=== PATIENT | female | born 1985 | race Caucasian/White ===

== ENCOUNTER 2023-06-29 08:40 | Emergency (ER) | payer OTHER, SELFPAY ==
[2023-06-29 08:54] VITALS: BP 112/77
--- NOTE | 2023-06-29 09:19 | ED.GENMED ---
Addendum entered and electronically signed by Aydin Zamorano DO 06/29/23 11:56:
Update feeling better abdomen soft nontender unable to give a stool specimen we will hold on antibiotics
Original Note:
History of Present Illness
General
Chief Complaint: Abdominal Symptoms
Source: patient
Exam Limitations: none
Time Seen by Provider: 06/29/23 09:06
Nursing documentation reviewed up to this point in time: agreed with
Travel History
Have you had any contact with someone who has COVID-19?: No
Do you have any symptoms of coronavirus? Fever > 100 degrees, chills, cough, shortness of breath, sore throat, loss of taste or smell, muscle aches, or headache?: No
History of Present Illness
History of Present Illness:
38 female 5 days nausea vomiting diarrhea fever chills abdominal cramping discussed with menstrual cycle, whole family's been sick with similar less severe symptoms, no foreign travel no raw or undercooked foods or recent antibiotic use she had an
appendectomy she has Brugada syndrome she is concerned that she may be dehydrated she has noticed blood in her stool the past few days
Past History
Past History
ED Past Medical History: Arrthythmia (Brugada syndrome) and Psychiatric
ED Past Surgical History: Appendectomy
Social History
Tobacco: Non-smoker
Alcohol: None
Drug: None
Personal: Single
Living: with family
Employment: Employed
Review of Systems
Review of Systems
All Other Systems: Not applicable
Constitutional: Reports fever, fatigue and chills
EENT: Reports no symptoms
Respiratory: Denies cough or trouble breathing
Cardiac: Reports chest pain
ABD/GI: Reports abdominal pain, nausea, vomiting and diarrhea
: Reports no symptoms
Musculoskeletal: Reports no symptoms
Skin: Reports no symptoms
Neurological: Reports weakness
Endocrine: Reports no symptoms
Hematologic/Lymphatic: Reports no symptoms
Phy Exam
Physical Exam
Physical Exam:
Physical Exam
General: no apparent distress, not acutely ill
Neck: Dry lips
Heart: s1/s2 regular rate and rhythm, no murmur. equal radial pulses.
Lungs: no acute respiratory distress. clear bilaterally
Abdomen: Soft mild diffuse tenderness no guarding or rebound
Neuro: alert and oriented. no focal neurological deficits
Skin: no rash
Psychiatric: well kept. interactive and cooperative
Extremities: no edema.
Course
Orders/Labs/Results
Orders:
Orders
06/29/23 09:07
STOOL [C difficile Antigen & Toxins] Urgent
GLENDY Source: Feces/Stool
Specimen Description:
Stool Culture Urgent
GLENDY Source: Feces/Stool
Specimen Description:
Stool For WBC Urgent
GLENDY Source: Feces/Stool
Specimen Description:
Test Result ONCE
06/29/23 09:18
Norovirus by PCR Urgent
GLENDY Source: Feces/Stool
Specimen Description:
0.9% Sodium Chloride 1000 ml [Nss] 1,000 ml IV BOLUS
Ketorolac [Toradol] 30 mg IV NOW STA
Ondansetron Injectable [Zofran] 4 mg IV NOW STA
06/29/23 09:29
Complete Blood Count/With Diff Urgent
Comprehensive Metabolic Panel Urgent
HCG, Serum Qualitative Screen Urgent
Lipase Urgent
Magnesium Urgent
06/29/23 10:20
Potassium Chloride [KCl] 40 meq PO NOW STA
Abnormal Lab Results
06/29/23
09:29
MCH 31.4 H pg
(27.0-31.0)
Potassium 3.2 L mmol/L
(3.5-5.1)
AST 72 H U/L
(14-36)
ALT 129 H U/L
(0-35)
06/29/23 09:29
06/29/23 09:29
Vital Signs
Initial and Last Documented VS:
Initial Vital Signs
Temp Pulse Resp BP Pulse Ox
98.0 F 76 20 112/77 100
06/29/23 08:54 06/29/23 08:54 06/29/23 08:54 06/29/23 08:54 06/29/23 08:54
Last Documented Vital Signs
Temp Pulse Resp BP Pulse Ox
98.0 F 66 15 109/76 99
06/29/23 08:54 06/29/23 10:00 06/29/23 10:00 06/29/23 10:00 06/29/23 10:00
MDM/Problems Addressed
Differential Diagnosis Includes:
Enteritis dehydration factious diarrhea colitis
MDM/Problems Addressed:
Nausea vomiting diarrhea bloody
Chronic conditions affecting care:
Brugada depression anxiety
Chronic conditions affecting care: Previous abdomnial surgery and Psychiatric illness
Acute Exacerbation and/or Progression of Chronic Illness: Previous abdomnial surgery and Psychiatric illness
*Pulse Oximetry
Patient hypoxic: no
*Critical Care Note
Total Time (30-74mins, 75-104mins- exclusive of procedures): Not Applicable
Update Note
Update Note:
Update, patient feeling better will replete potassium
ED Attending Note
-
Portions of this chart may have been created with voice recognition software.� Occasional wrong word or��sound alike� substitutions may have occurred due to the inherent limitations of voice recognition software.
Discharge Plan
Departure
Prescriptions:
No Action
sertraline 50 mg Tablet
50 mg PO DAILY Qty: 0 0RF
ondansetron [Zofran ODT] 4 mg Tablet,Disintegrating
4 mg PO Q8H PRN (Reason: nausea)
Wegovy 1.7 mg/0.75 mL Pen Injector
1.7 mg SC QWEEK
Rx Instructions:
patient takes on Mondays
Referrals:
Froy Ortiz PA-C [Family Provider] -
Interventions
Interventions:
*Risk Screen - Suicide Last Done: 06/29/23 09:49
*General Assessment Last Done: 06/29/23 09:49
*Neglect/Abuse Screening Last Done: 06/29/23 09:49
ED- Fall Risk Assessment Last Done: 06/29/23 09:49
*ED COVID-19 Vaccine History Last Done: 06/29/23 09:49
OG-Nbvjvs-Gedkewkvsc Assessment Last Done: 06/29/23 09:49
Discharge Date and Time
Print Language: ITALIAN
[2023-06-29] MEDS: NSS 1000 IV (09:34)
[2023-06-29] MEDS: TORADOL 30 MG IV (09:36)
[2023-06-29] MEDS: ZOFRAN 4 MG IV (09:36)
[2023-06-29 09:44] VITALS: BP 109/69
[2023-06-29 09:49] VITALS: BP 109/69; BMI 25.6
[2023-06-29 09:55] LABS: % Basophils 0.3 % (0-2); % Eosinophils 0.3 % (0-6); % Immature Granulocytes 0.3 % (0-0.5); % Monocytes 5.4 % (1.7-9.3); % Neutrophils 72.7 % (42.2-75.2); Absolute Lymphocytes 1.2 10^3/uL (1.2-3.4); Absolute Monocytes 0.3 10^3/uL (0.1-0.6); Absolute Neutrophils 4.2 10^3/uL (1.4-6.5); Hematocrit 37.1 % (37.0-47.0); Hemoglobin 13.3 g/dL (12.0-16.0); Mean Corp Hgb Conc. 35.8 g/dL (33.0-37.0); Mean Corpuscular Hgb 31.4 pg (27.0-31.0); Mean Corpuscular Volume 87.5 fL (81.0-99.0); Mean Platelet Volume 8.6 fL (7.4-10.4); Nucleated Red Blood Cells % 0 %; Platelet Count 253 10^3/uL (130-400); Red Blood Cell Count 4.24 10^6/uL (4.20-5.40); Red Cell Dist. Width 13.3 % (11.5-14.5); White Blood Cell Count 5.8 10^3/uL (4.8-10.8)
[2023-06-29 10:00] VITALS: BP 109/76
[2023-06-29 10:03] LABS: HCG, Serum Qualitative Screen Negative
[2023-06-29 10:05] LABS: ALT (SGPT) 129 U/L (0-35); AST (SGOT) 72 U/L (14-36); Albumin 4.6 g/dl (3.5-5.0); Alkaline Phosphatase 92 U/L (38-126); Blood Urea Nitrogen 11 mg/dl (7-17); Calcium 9.1 mg/dl (8.4-10.2); Carbon Dioxide 28 mmol/L (22-30); Chloride 104 mmol/L (98-107); Estimated Creatinine Clearance 98 ml/min; Glucose 88 mg/dl (70-99); Lipase 298 U/L (23-300); Magnesium 2.1 mg/dl (1.6-2.3); Potassium 3.2 mmol/L (3.5-5.1); Sodium 139 mmol/L (135-145); Total Bilirubin 0.7 mg/dl (0.2-1.3); Total Protein 7.5 g/dl (6.3-8.2); eGFR > 60.00
[2023-06-29 11:00] VITALS: BP 113/64
[2023-06-29] MEDS: KCL 40 MEQ PO (11:39)
--- NOTE | 2023-06-29 11:53 | ED.GENMED ---
History of Present Illness
General
Chief Complaint: Abdominal Symptoms
Time Seen by Provider: 06/29/23 09:06
Travel History
Have you had any contact with someone who has COVID-19?: No
Do you have any symptoms of coronavirus? Fever > 100 degrees, chills, cough, shortness of breath, sore throat, loss of taste or smell, muscle aches, or headache?: No
Past History
Past History
ED Past Medical History: Arrthythmia (Brugada syndrome) and Psychiatric
ED Past Surgical History: Appendectomy
Social History
Tobacco: Non-smoker
Alcohol: None
Drug: None
Personal: Single
Living: with family
Employment: Employed
Course
Orders/Labs/Results
Orders:
Orders
06/29/23 09:07
STOOL [C difficile Antigen & Toxins] Urgent
GLENDY Source: Feces/Stool
Specimen Description:
Stool Culture Urgent
GLENDY Source: Feces/Stool
Specimen Description:
Stool For WBC Urgent
GLENDY Source: Feces/Stool
Specimen Description:
Test Result ONCE
06/29/23 09:18
Norovirus by PCR Urgent
GLENDY Source: Feces/Stool
Specimen Description:
0.9% Sodium Chloride 1000 ml [Nss] 1,000 ml IV BOLUS
Ketorolac [Toradol] 30 mg IV NOW STA
Ondansetron Injectable [Zofran] 4 mg IV NOW STA
06/29/23 09:29
Complete Blood Count/With Diff Urgent
Comprehensive Metabolic Panel Urgent
HCG, Serum Qualitative Screen Urgent
Lipase Urgent
Magnesium Urgent
06/29/23 10:20
Potassium Chloride [KCl] 40 meq PO NOW STA
Abnormal Lab Results
06/29/23
09:29
MCH 31.4 H pg
(27.0-31.0)
Potassium 3.2 L mmol/L
(3.5-5.1)
AST 72 H U/L
(14-36)
ALT 129 H U/L
(0-35)
06/29/23 09:29
06/29/23 09:29
Vital Signs
Initial and Last Documented VS:
Initial Vital Signs
Temp Pulse Resp BP Pulse Ox
98.0 F 76 20 112/77 100
06/29/23 08:54 06/29/23 08:54 06/29/23 08:54 06/29/23 08:54 06/29/23 08:54
Last Documented Vital Signs
Temp Pulse Resp BP Pulse Ox
98.0 F 67 20 113/64 100
06/29/23 08:54 06/29/23 11:00 06/29/23 11:00 06/29/23 11:00 06/29/23 11:00
Update Note
Update Note:
11:53 AM patient feeling much better abdomen soft nontender unable to provide a stool specimen
Will hold on antibiotics at this point as she seems to have responded to conservative treatment
ED Attending Note
-
Portions of this chart may have been created with voice recognition software.� Occasional wrong word or��sound alike� substitutions may have occurred due to the inherent limitations of voice recognition software.
Discharge Plan
Departure
Patient Disposition: Home (Routine Discharge)
Date of Disposition: 06/29/23
Time of Disposition: 11:53
Patient with high blood pressure during this ER visit?: No
Condition: Good
Discharge Problem:
Diarrhea, Nausea
Instructions: Diarrhea in adolescents and adults, [place] Diet, Nausea and Vomiting, Adult (DC), Abdominal Pain
Prescriptions:
New
ondansetron 4 mg tablet,disintegrating
4 mg PO Q8H PRN (Reason: nausea and vomiting) Qty: 10 0RF
dicyclomine 20 mg tablet
20 mg PO QID PRN (Reason: cramping) Qty: 10 0RF
potassium chloride 10 mEq capsule, extended release
10 meq PO DAILY Qty: 5 0RF
No Action
sertraline 50 mg Tablet
50 mg PO DAILY Qty: 0 0RF
ondansetron [Zofran ODT] 4 mg Tablet,Disintegrating
4 mg PO Q8H PRN (Reason: nausea)
Wegovy 1.7 mg/0.75 mL Pen Injector
1.7 mg SC QWEEK
Rx Instructions:
patient takes on Mondays
Referrals:
Froy Ortiz PA-C [Family Provider] -
Interventions
Interventions:
*Risk Screen - Suicide Last Done: 06/29/23 09:49
*General Assessment Last Done: 06/29/23 09:49
*Neglect/Abuse Screening Last Done: 06/29/23 09:49
ED- Fall Risk Assessment Last Done: 06/29/23 09:49
*ED COVID-19 Vaccine History Last Done: 06/29/23 09:49
IE-Zkwwei-Ifmzflakbi Assessment Last Done: 06/29/23 09:49
Discharge Date and Time
Print Language: BULGARIAN
[2023-06-29 12:00] VITALS: BP 109/61
== END 2023-06-29 12:30 | disposition home or self-care (01) ==
LOC: EMR 08:40
PROVIDERS: EMERGENCY PHYSICIAN Emergency Medicine; FAMILY PHYSICIAN Physician Assistant Medical
DX: R11.2 Nausea with vomiting, unspecified (principal); R19.7 Diarrhea, unspecified; I49.8 Other specified cardiac arrhythmias; F32.A Depression, unspecified; F41.9 Anxiety disorder, unspecified
CPT/HCPCS: 99284; 96374; 96361; 80053; 83690; 83735; 84703; 85025

== ENCOUNTER → 2024-03-19 11:05 | Outpatient (REF) | payer OTHER, SELFPAY ==
[2024-03-25 06:50] LABS: HPV, High Risk Not Detected; HPV, High Risk Source Anal
== END ==
LOC: CLAB 11:05
PROVIDERS: ATTENDING PHYSICIAN Surgery
DX: Z87.410 Personal history of cervical dysplasia (principal)
CPT/HCPCS: 87624; 88112

== ENCOUNTER 2024-04-21 06:19 | Day surgery (SDC) | payer OTHER, SELFPAY | END 2024-04-21 11:46 | disposition home or self-care (01) | LOC: GI 06:19 | PROVIDERS: ATTENDING PHYSICIAN Surgery | DX: K62.5 Hemorrhage of anus and rectum (principal); K64.9 Unspecified hemorrhoids | CPT/HCPCS: 45378 ==

== ENCOUNTER → 2024-09-06 09:42 | Outpatient (REF) | payer OTHER, SELFPAY | LOC: WDC 09:42 | PROVIDERS: ATTENDING PHYSICIAN Student in an Organized Health Care Education/Training Program | DX: N64.4 Mastodynia (principal) | CPT/HCPCS: 76642; 77062; 77066 ==

== ENCOUNTER 2024-12-15 08:20 | Emergency (ER) | payer OTHER, SELFPAY ==
[2024-12-15 08:20] VITALS: BMI 24.4
[2024-12-15 08:29] VITALS: BP 101/77
[2024-12-15] MEDS: NSS 1000 IV (09:33)
[2024-12-15] MEDS: ZOFRAN 4 MG IV (09:35)
[2024-12-15 09:49] LABS: Hematocrit 40.6 % (37.0-47.0); Hemoglobin 14.5 g/dL (12.0-16.0); Mean Corp Hgb Conc. 35.7 g/dL (33.0-37.0); Mean Corpuscular Volume 87.9 fL (81.0-99.0); Nucleated Red Blood Cells % 0 %; Platelet Count 274 10^3/uL (130-400); Red Cell Dist. Width 13.2 % (11.5-14.5)
[2024-12-15 10:00] VITALS: BP 119/72
[2024-12-15] MEDS: TYLENOL 650 MG PO (10:15)
[2024-12-15 10:16] LABS: HCG, Serum Qualitative Screen Negative
[2024-12-15 10:25] LABS: ALT (SGPT) 25 U/L (0-35); AST (SGOT) 25 U/L (14-36); Albumin 4.8 g/dl (3.5-5.0); Alkaline Phosphatase 76 U/L (38-126); Blood Urea Nitrogen 14 mg/dl (7-17); Calcium 9.2 mg/dl (8.4-10.2); Carbon Dioxide 25 mmol/L (22-30); Chloride 105 mmol/L (98-107); Estimated Creatinine Clearance 97 ml/min; Glucose 111 mg/dl (70-99); Lipase 98 U/L (23-300); Potassium 4.0 mmol/L (3.5-5.1); Sodium 137 mmol/L (135-145); Total Protein 8.0 g/dl (6.3-8.2); eGFR > 60.00
[2024-12-15 11:00] VITALS: BP 107/74
[2024-12-15 11:06] LABS: Urine Character Clear (Clear)
[2024-12-15 13:00] VITALS: BP 112/64
--- NOTE | 2024-12-15 13:39 | ED.GENMED ---
History of Present Illness
General
Chief Complaint: Abdominal Symptoms
Source: patient
Exam Limitations: none
Time Seen by Provider: 12/15/24 09:10
History of Present Illness
History of Present Illness:
Nausea vomiting diarrhea since yesterday. Started his mid abdominal symptoms. No blood or mucus in the diarrhea. No fever. No chest pain or shortness of breath. No syncope.
Past History
Past History
ED Past Medical History: Other (Brugada syndrome)
ED Past Surgical History: Appendectomy and Other (Your surgery/LEEP procedure)
Social History
Tobacco: Non-smoker
Alcohol: None
Drug: None
Personal: Single
Living: alone
Employment: Employed
Review of Systems
Review of Systems
All Other Systems: Not applicable
Constitutional: Denies fever
Respiratory: Reports no symptoms
Cardiac: Reports no symptoms
Phy Exam
Physical Exam
Physical Exam:
GENERAL: Alert and oriented in no apparent distress
EYE: Orbits normal.
NECK: Supple
CARDIAC: Regular rate and rhythm without any obvious murmurs.
LUNGS: Clear breath sounds,normal
ABDOMEN: Soft, no distention. Bowel sounds present. Mild nonlocalizing mid abdominal tenderness. No rebound or guarding no mass or hernia
NEUROLOGICAL: Alert and oriented , grossly non-focal
SKIN: Warm and dry, no rash or lesion, no discoloration, skin intact.
MUSCULOSKELETAL: No edema,no deformity.Good color
PSYCH: Normal and appropriate interaction.
Course
Orders/Labs/Results
Orders:
Orders
12/15/24 09:17
CT Abd/Pel (IV only)-DH only Urgent
Comment:
Reason For Exam: Abdominal pain vomiting diarrhea
IV Insert/Care/Rem.- Treatment PRN
STOOL [C difficile Antigen & Toxins] Urgent
GLENDY Source: Feces/Stool
Specimen Description:
Stool Culture Urgent
GLENDY Source: Feces/Stool
Specimen Description:
0.9% Sodium Chloride 1000 ml [Nss] 1,000 ml IV BOLUS
Ondansetron Injectable [Zofran] 4 mg IV NOW STA
12/15/24 09:19
Test Result ONCE
12/15/24 09:33
Complete Blood Count/With Diff Urgent
Comprehensive Metabolic Panel Urgent
HCG, Serum Qualitative Screen Urgent
Lipase Urgent
12/15/24 09:57
Acetaminophen [Tylenol] 650 mg .ROUTE .STK-MED ONE
12/15/24 10:15
Acetaminophen [Tylenol] 650 mg PO NOW STA
12/15/24 10:49
Urinalysis Reflex To Culture Urgent
Date Specimen was Collected: 12/15/24
Time Specimen was Collected: 10:41
Abnormal Lab Results
12/15/24
09:33
MCH 31.4 H pg
(27.0-31.0)
Absolute Neuts (auto) 9.2 H 10^3/uL
(1.4-6.5)
Absolute Lymphs (auto) 0.8 L 10^3/uL
(1.2-3.4)
Neutrophils % 86.0 H %
(42.2-75.2)
Lymphocytes % 7.8 L %
(20.5-51.1)
Glucose 111 H mg/dl
(70-99)
12/15/24 09:33
12/15/24 09:33
Vital Signs
Initial and Last Documented VS:
Initial Vital Signs
Temp Pulse Resp BP Pulse Ox
98.4 F 83 16 101/77 100
12/15/24 08:29 12/15/24 08:29 12/15/24 08:29 12/15/24 08:29 12/15/24 08:29
Last Documented Vital Signs
Temp Pulse Resp BP Pulse Ox
98.4 F 83 16 101/77 99
12/15/24 08:29 12/15/24 08:29 12/15/24 08:29 12/15/24 08:29 12/15/24 13:40
MDM/Problems Addressed
Differential Diagnosis Includes:
Workup for mid abdominal pain. Relatively low suspicion for surgical abdomen. Fluids nausea meds. History of Brugada syndrome. Reviewed Zofran with pharmacy. Large differential including early appendicitis diverticulitis colitis enteritis doubt
bowel obstruction. Doubt gallbladder.
*Radiology
Radiology exam reviewed: radiology read reviewed (Negative)
*Pulse Oximetry
SaO2: 99
Oxygen Mode of Delivery: Room air
Patient hypoxic: no
*Critical Care Note
Total Time (30-74mins, 75-104mins- exclusive of procedures): Not Applicable
Data Reviewed
Review of Other/Old Records Reveals: Labs and Records
Update Note
Update Note:
Patient tolerated fluids and crackers well. In no distress. Comfortable going home. No serious findings on workup
ED Attending Note
-
Portions of this chart may have been created with voice recognition software.� Occasional wrong word or��sound alike� substitutions may have occurred due to the inherent limitations of voice recognition software.
Discharge Plan
Departure
Patient Disposition: Home (Routine Discharge)
Date of Disposition: 12/15/24
Time of Disposition: 13:39
Patient with high blood pressure during this ER visit?: No
Discharge Problem:
Abdominal pain vomiting diarrhea
Instructions: Diarrhea in teens and adults, Nausea and Vomiting, Adult (DC), Abdominal Pain
Prescriptions:
No Action
sertraline 50 mg Tablet
50 mg PO DAILY Qty: 0 0RF
ondansetron [Zofran ODT] 4 mg Tablet,Disintegrating
4 mg PO Q8H PRN (Reason: nausea)
Wegovy 1.7 mg/0.75 mL Pen Injector
1.7 mg SC QWEEK
Rx Instructions:
patient takes on Mondays
ondansetron 4 mg tablet,disintegrating
4 mg PO Q8H PRN (Reason: nausea and vomiting) Qty: 10 0RF
dicyclomine 20 mg tablet
20 mg PO QID PRN (Reason: cramping) Qty: 10 0RF
potassium chloride 10 mEq capsule, extended release
10 meq PO DAILY Qty: 5 0RF
Referrals:
Mario Raman MD [Family Provider, Family Practice] - Follow up in 2-3 days
Activity Restrictions/Additional Instructions:
Light diet for the next few days
Return sooner with increasing pain fever vomiting or if symptoms have not resolved in the next few days
Interventions
Interventions:
*Risk Screen - Suicide Last Done: 12/15/24 08:29
*General Assessment Last Done: 12/15/24 09:30
*Neglect/Abuse Screening Last Done: 12/15/24 08:29
*ED COVID-19 Vaccine History Last Done: 12/15/24 09:30
*ED Influenza Vaccine History Last Done: 12/15/24 09:30
HU-Nkonqq-Utsjnmztji Assessment Last Done: 12/15/24 09:30
Discharge Date and Time
Print Language: WOLOF
== END 2024-12-15 14:09 | disposition home or self-care (01) ==
LOC: EMR 08:20
PROVIDERS: EMERGENCY PHYSICIAN Emergency Medicine; FAMILY PHYSICIAN Family Medicine
DX: R11.2 Nausea with vomiting, unspecified (principal); R19.7 Diarrhea, unspecified; R10.9 Unspecified abdominal pain; Z90.49 Acquired absence of other specified parts of digestive tract
CPT/HCPCS: 96374; 96361; 99284; 74177; 80053; 81003; 83690; 84703; 85025; Q9967

== ENCOUNTER → 2025-02-04 10:39 | Outpatient (REF) | payer OTHER, SELFPAY | LOC: HWRAD 10:39 | PROVIDERS: ATTENDING PHYSICIAN Physician Assistant | DX: M54.2 Cervicalgia (principal) | CPT/HCPCS: 72125 ==

== ENCOUNTER 2025-02-22 16:40 | Emergency (ER) | payer OTHER, SELFPAY ==
[2025-02-22 16:55] VITALS: BP 121/75
[2025-02-22 17:17] LABS: Hematocrit 36.2 % (37.0-47.0); Hemoglobin 12.9 g/dL (12.0-16.0); Mean Corp Hgb Conc. 35.6 g/dL (33.0-37.0); Mean Corpuscular Volume 88.7 fL (81.0-99.0); Nucleated Red Blood Cells % 0 %; Platelet Count 243 10^3/uL (130-400); Red Cell Dist. Width 12.9 % (11.5-14.5)
[2025-02-22 17:25] LABS: HCG, Serum Qualitative Screen Negative
[2025-02-22 17:34] LABS: ALT (SGPT) 27 U/L (0-35); AST (SGOT) 23 U/L (14-36); Albumin 4.5 g/dl (3.5-5.0); Alkaline Phosphatase 77 U/L (38-126); Blood Urea Nitrogen 12 mg/dl (7-17); Calcium 9.2 mg/dl (8.4-10.2); Carbon Dioxide 26 mmol/L (22-30); Chloride 104 mmol/L (98-107); Glucose 94 mg/dl (70-99); Lipase 178 U/L (23-300); Sodium 137 mmol/L (135-145); Total Protein 7.4 g/dl (6.3-8.2); eGFR > 60.00
[2025-02-22 17:39] LABS: Potassium 3.5 mmol/L (3.5-5.1)
[2025-02-22 20:08] VITALS: BP 123/75
[2025-02-22] MEDS: NSS 1000 IV (20:12)
--- NOTE | 2025-02-22 20:58 | ED.GENMED ---
History of Present Illness
<Tracy Caputo SEAMLESS TUBE ROLLER - Last Filed: 02/22/25 23:15>
General
Chief Complaint: Abdominal Pain
Source: patient
Exam Limitations: none
Time Seen by Provider: 02/22/25 20:44
Nursing documentation reviewed up to this point in time: agreed with
History of Present Illness
History of Present Illness:
39-year-old female with no clinically significant past medical history presents for pain across her lower abdomen that started 6 days ago, it comes and goes, when it comes it is 10/10 causing her to vomit, it lasts 5 to 10 minutes then subsides.
She was here on 10 8 for similar symptoms except at that time she had diarrhea and she has no diarrhea at this time. She states the pain is worse while vomiting but then feels a little relief. She has no pain at this time. Her last episode of
pain was about 10 minutes ago where she was doubled over.
She has been on Wegovy for a little over a year currently other medication is sertraline. She denies fever or chills. Period ended last night. Had a normal bowel movement today. Denies urinary symptoms
Past History
<Tracy Caputo, SEAMLESS TUBE ROLLER - Last Filed: 02/22/25 23:15>
Past History
ED Past Medical History: Other (Brugada syndrome)
ED Past Surgical History: Appendectomy and Other (Your surgery/LEEP procedure)
Social History
Tobacco: Non-smoker
Alcohol: None
Drug: None
Personal: Single
Living: alone
Employment: Employed
Review of Systems
<Tracy Caputo SEAMLESS TUBE ROLLER - Last Filed: 02/22/25 23:15>
Review of Systems
Allergies reviewed?: Yes
All Other Systems: ROS reviewed and negative except as documented in HPI and ROS
Phy Exam
<Tracy Caputo, SEAMLESS TUBE ROLLER - Last Filed: 02/22/25 23:15>
Physical Exam
Physical Exam:
GENERAL: No acute distress. A&Ox3.
CONSTITUTIONAL: Afebrile.
EYES: clear, conjunctivae normal
ENMT: moist mucus membranes, Pharynx nl
RESPIRATORY: Regular respirations, nonlabored, lungs clear.
CARDIOVASCULAR: Regular rate and rhythm, no murmurs, no rubs.
GI: Soft, nontender, normal BS
MUSCULOSKELETAL: Moves with ease. Well perfused.
SKIN: Warm, dry, pink
PSYCH: Normal mood and affect. Well kept, interactive and appropriate
NEUROLOGIC: Awake, alert and oriented. No focal neurological deficits
Course
<Tracy Caputo, SEAMLESS TUBE ROLLER - Last Filed: 02/22/25 23:15>
Orders/Labs/Results
Orders:
Orders
02/22/25 16:59
Test Result ONCE
02/22/25 17:04
Complete Blood Count/With Diff Urgent
Comprehensive Metabolic Panel Urgent
HCG, Serum Qualitative Screen Urgent
Lipase Urgent
02/22/25 20:11
0.9% Sodium Chloride 1000 ml [Nss] 1,000 ml IV BOLUS
02/22/25 20:54
US Pelvis W Transvag Combined Urgent
Comment:
Reason For Exam: pain across lower abdomen
02/22/25 22:00
UA Reflex to Culture [Urinalysis Reflex To Culture] Urgent
Date Specimen was Collected: 02/22/25
Time Specimen was Collected: 21:59
02/22/25 22:20
CT Abd/Pel (IV only)-[facility] only Urgent
Comment:
Reason For Exam: pain across lower abdomen
02/22/25 22:25
Dicyclomine [Bentyl] 20 mg PO NOW STA
Abnormal Lab Results
02/22/25
17:04
RBC 4.08 L 10^6/uL
(4.20-5.40)
Hct 36.2 L %
(37.0-47.0)
MCH 31.6 H pg
(27.0-31.0)
02/22/25 17:04
02/22/25 17:04
Vital Signs
Initial and Last Documented VS:
Initial Vital Signs
Temp Pulse Resp BP Pulse Ox
98.4 F 76 20 121/75 97
02/22/25 16:55 02/22/25 16:55 02/22/25 16:55 02/22/25 16:55 02/22/25 16:55
Last Documented Vital Signs
Temp Pulse Resp BP Pulse Ox
98.4 F 82 18 127/83 99
02/22/25 16:55 02/22/25 22:35 02/22/25 22:35 02/22/25 22:35 02/22/25 22:35
[place];Nicki Valenzuela PA-C - Last Filed: 02/23/25 00:01>
Orders/Labs/Results
Orders:
Orders
02/22/25 16:59
Test Result ONCE
02/22/25 17:04
Complete Blood Count/With Diff Urgent
Comprehensive Metabolic Panel Urgent
HCG, Serum Qualitative Screen Urgent
Lipase Urgent
02/22/25 20:11
0.9% Sodium Chloride 1000 ml [Nss] 1,000 ml IV BOLUS
02/22/25 20:54
US Pelvis W Transvag Combined Urgent
Comment:
Reason For Exam: pain across lower abdomen
02/22/25 22:00
UA Reflex to Culture [Urinalysis Reflex To Culture] Urgent
Date Specimen was Collected: 02/22/25
Time Specimen was Collected: 21:59
02/22/25 22:20
CT Abd/Pel (IV only)-[facility] only Urgent
Comment:
Reason For Exam: pain across lower abdomen
02/22/25 22:25
Dicyclomine [Bentyl] 20 mg PO NOW STA
Abnormal Lab Results
02/22/25
17:04
RBC 4.08 L 10^6/uL
(4.20-5.40)
Hct 36.2 L %
(37.0-47.0)
MCH 31.6 H pg
(27.0-31.0)
02/22/25 17:04
02/22/25 17:04
Vital Signs
Initial and Last Documented VS:
Initial Vital Signs
Temp Pulse Resp BP Pulse Ox
98.4 F 76 20 121/75 97
02/22/25 16:55 02/22/25 16:55 02/22/25 16:55 02/22/25 16:55 02/22/25 16:55
Last Documented Vital Signs
Temp Pulse Resp BP Pulse Ox
98.4 F 82 18 127/83 99
02/22/25 16:55 02/22/25 22:35 02/22/25 22:35 02/22/25 22:35 02/22/25 22:35
<Tracy Caputo, SEAMLESS TUBE ROLLER - Last Filed: 02/22/25 23:15>
MDM/Problems Addressed
Differential Diagnosis Includes:
ovarian cyst, torsion, diverticulitis, constipation so we started
MDM/Problems Addressed:
39-year-old female with no clinically significant past medical history presents for pain across her lower abdomen that started 6 days ago, it comes and goes, when it comes it is 10/10 causing her to vomit, it lasts 5 to 10 minutes then subsides.
She was here on 10 8 for similar symptoms except at that time she had diarrhea and she has no diarrhea at this time. She states the pain is worse while vomiting but then feels a little relief. She has no pain at this time. Her last episode of
pain was about 10 minutes ago where she was doubled over.
She has been on Wegovy for a little over a year currently other medication is sertraline. She denies fever or chills. Period ended last night.
Afebrile, NAD
CBC unremarkable
CMP normal
hCG negative
10:20 PM:
Ultrasound: Radiology report read: Unremarkable
UA: Negative
Pt informed of results
Plan: Dicyclomine as she has used it in the past.
11:00 p.m.
No episodes of significant pain since initial exam
CT abd/pelvis with IV only contrast: Radiology report read: No acute findings
Referred to GI for follow-up
Prescription for Bentyl sent to her pharmacy
<Tracy Caputo SEAMLESS TUBE ROLLER - Last Filed: 02/22/25 23:15>
*Pulse Oximetry
SaO2: 100
Oxygen Mode of Delivery: Room air
Patient hypoxic: no
*Critical Care Note
Total Time (30-74mins, 75-104mins- exclusive of procedures): Not Applicable
<Nicki Valenzuela PA-C - Last Filed: 02/23/25 00:01>
Update Note
Update Note:
I had asked my nursing staff to send Bentyl to the patient's pharmacy. Provider who evaluated patient planned in this. Will send prescription for few tablets.
ED Attending Note
<Tracy Caputo SEAMLESS T[employer]BE ROLLER - Last Filed: 02/22/25 23:15>
-
Portions of this chart may have been created with voice recognition software.� Occasional wrong word or��sound alike� substitutions may have occurred due to the inherent limitations of voice recognition software.
Discharge Plan
Departure
Patient Disposition: Home (Routine Discharge)
Date of Disposition: 02/22/25
Time of Disposition: 23:12
Patient with high blood pressure during this ER visit?: No
Condition: Good
Discharge Problem:
Bilateral lower abdominal pain
Instructions: Abdominal Pain
Prescriptions:
New
dicyclomine 20 mg tablet
20 mg PO BID Qty: 8 0RF
No Action
sertraline 50 mg Tablet
50 mg PO DAILY Qty: 0 0RF
ondansetron [Zofran ODT] 4 mg Tablet,Disintegrating
4 mg PO Q8H PRN (Reason: nausea)
Wegovy 1.7 mg/0.75 mL Pen Injector
1.7 mg SC QWEEK
Rx Instructions:
patient takes on Mondays
ondansetron 4 mg tablet,disintegrating
4 mg PO Q8H PRN (Reason: nausea and vomiting) Qty: 10 0RF
potassium chloride 10 mEq capsule, extended release
10 meq PO DAILY Qty: 5 0RF
Referrals:
Gil Joiner MD [Active, Gastroenterology] - As needed
Mario Raman MD [Family Provider, Family Practice] - As needed
Activity Restrictions/Additional Instructions:
As we discussed, nothing worrisome in your workup here tonight. I sent a prescription to your pharmacy for Dicyclomine (Bentyl) for abdominal spasms.
You may be experiencing side effects of Wygovy, please discuss with your doctor.
I sent a prescription for Bentyl to your pharmacy to use if it helps your abdominal spasms
I have provided you the name of a GI doctor to follow-up with if your pain continues
Interventions
Interventions:
*General Assessment Last Done: 02/22/25 16:55
*Neglect/Abuse Screening Last Done: 02/22/25 16:55
[facility] Risk Assessment Tool Last Done: 02/23/25 00:00
*Risk Screen - Suicide (C-SSRS) Last Done: 02/22/25 16:55
QB-Qpmhpt-Edxufgwbsp Assessment Last Done: 02/22/25 20:09
Discharge Date and Time
Print Language: LATVIAN
[2025-02-22 22:15] LABS: Urine Character Clear (Clear)
[2025-02-22] MEDS: BENTYL 20 MG PO (22:28)
[2025-02-22 22:35] VITALS: BP 127/83
== END 2025-02-22 23:23 | disposition home or self-care (01) ==
LOC: EMR 16:40
PROVIDERS: Registered Nurse; EMERGENCY PHYSICIAN Emergency Medicine; FAMILY PHYSICIAN Family Medicine
DX: R10.31 Right lower quadrant pain (principal); R10.32 Left lower quadrant pain; I49.8 Other specified cardiac arrhythmias
CPT/HCPCS: 99284; 96360; 74177; 76830; 76856; 80053; 81003; 83690; 84703; 85025; Q9967